=== PATIENT | female | born 1995 | race Caucasian/White ===

== ENCOUNTER 2019-02-22 10:16 | Outpatient (CLI) | payer BC ==
[~2019-02-22] VITALS: Ht 157.5 cm; Wt 90.9 kg
[2019-02-22 10:34] VITALS: BP 113/74
== END 2019-02-22 11:19 | disposition home or self-care (01) ==
LOC: LDOP 10:16
PROVIDERS: ATTEND Obstetrics & Gynecology
DX: O26.893 Other specified pregnancy related conditions, third trimester (principal); M79.89 Other specified soft tissue disorders; Z3A.36 36 weeks gestation of pregnancy; Z88.2 Allergy status to sulfonamides
CPT/HCPCS: 59025; 99201; G0463

== ENCOUNTER 2019-03-07 23:11 | Outpatient (CLI) | payer BC ==
[~2019-03-07] VITALS: Ht 160 cm; Wt 88.0 kg
[2019-03-07 23:45] VITALS: BP 117/73
== END 2019-03-08 00:59 | disposition home or self-care (01) ==
LOC: LDOP 23:11
PROVIDERS: ATTEND Obstetrics & Gynecology
DX: O26.893 Other specified pregnancy related conditions, third trimester (principal); Z3A.38 38 weeks gestation of pregnancy
CPT/HCPCS: 59025; 99211; G0463

== ENCOUNTER 2019-03-14 11:57 | Inpatient (IN) | payer BC ==
[~2019-03-14] VITALS: Ht 160 cm; Wt 90.0 kg
[2019-03-14] MEDS ORDERED: D5%-LACTATED RINGERS 1,000 ML IV SCH (13:52)
[2019-03-14] MEDS ORDERED: OXYTOCIN 30U/ 0.9% NaCL 500ML 500 ML IV ONE (13:52)
[2019-03-14] MEDS ORDERED: LACTATED RINGERS 1,000 ML IV SCH (13:52)
[2019-03-14] MEDS ORDERED: MISOPROSTOL 25 MCG TABLET VG PRN (14:00)
[2019-03-14] MEDS ORDERED: TERBUTALINE 1 MG/ML, 1ML IVPush PRN (14:00)
[2019-03-14] MEDS ORDERED: FENTANYL PF 100 MCG/2ML IV PRN (14:00)
[2019-03-14] MEDS ORDERED: TERBUTALINE 1 MG/ML, 1ML SQ PRN (14:00)
[2019-03-14] MEDS ORDERED: FENTANYL PF 100 MCG/2ML IVPush PRN (14:00)
[2019-03-14] MEDS ORDERED: CALCIUM CARBONATE 500 MG TAB.CHEW PO PRN (14:00)
[2019-03-14] MEDS ORDERED: MISOPROSTOL 25 MCG TABLET ONE (14:09)
[2019-03-14 14:21] VITALS: BP 119/72
[2019-03-14 14:35] LABS: MICROSCOPIC INDICATED
[2019-03-14 14:37] LABS: CREATININE,URINE RANDOM 92.6 mg/dL
[2019-03-14] MEDS ORDERED: NEWBORN KIT ONE (14:45)
[2019-03-14 14:59] LABS: ALANINE AMINOTRANSFERASE 18 U/L (12-78); ALBUMIN 2.4 g/dL (3.4-5.0); ANION GAP 9 mmol/L (5-15); CALCIUM 8.6 mg/dL (8.5-10.1); CHLORIDE 110 mmol/L (98-107); CREATININE 0.62 mg/dL (0.55-1.02)
[2019-03-14 15:03] LABS: ALKALINE PHOSPHATASE 216 U/L (45-117); BILIRUBIN,TOTAL 0.2 mg/dL (0.2-1.0); TOTAL PROTEIN 6.2 g/dL (6.4-8.2)
[2019-03-14 15:07] LABS: BASOPHILS # (AUTO) 0.04 x10^3/uL (0-0.1); BASOPHILS % (AUTO) 0 % (0-1); EOSINOPHILS # (AUTO) 0.13 x10^3/uL (0-0.4); EOSINOPHILS % (AUTO) 1 % (1-7); LYMPHOCYTES # (AUTO) 2.16 x10^3/uL (1-3.4); LYMPHOCYTES % (AUTO) 17 % (22-44); MD NO; MEAN CORPUSCULAR HGB CONC 33.6 g/dL (32.4-35.8); MEAN CORPUSCULAR VOLUME 86.3 fL (80-100); MEAN PLATELET VOLUME 9.2 fL (7.4-10.4); MONOCYTES # (AUTO) 0.61 x10^3/uL (0.2-0.8); MONOCYTES % (AUTO) 5 % (2-9); NEUTROPHILS # (AUTO) 9.57 x10^3/uL (1.8-6.8); NEUTROPHILS % (AUTO) 77 % (42-75); PLATELET COUNT 282 x10^3/uL (130-400); RED BLOOD COUNT 4.17 x10^6/uL (3.82-5.3); RED CELL DISTRIBUTION WIDTH 12.9 % (9.6-15.2)
[2019-03-14] MEDS ORDERED: FENTANYL/BUPIV./NS/PF 250 ML EPIDCONT SCH (16:11)
[2019-03-14] MEDS ORDERED: EPHEDRINE 50 MG/ML, 1ML IVPush PRN (16:30)
[2019-03-14] MEDS ORDERED: NALOXONE 0.4 MG/ML, 1ML IVPush PRN (16:30)
[2019-03-14] MEDS ORDERED: LACTATED RINGERS 1,000 ML IVBOLUS PRN (16:30)
[2019-03-14] MEDS ORDERED: ONDANSETRON 2MG/ML, 2ML ONE ×2 (18:09→23:31)
[2019-03-14] MEDS: ONDANSETRON 2MG/ML, 2ML IVPush PRN ×2 (18:11→23:33)
[2019-03-14] MEDS: LACTATED RINGERS 1,000 ML IV SCH ×2 (19:38→23:30)
[2019-03-14 19:54] VITALS: BP 126/78
[2019-03-14] MEDS ORDERED: OXYTOCIN 30U/ 0.9% NaCL 500ML 500 ML ONE (20:00)
[2019-03-14] MEDS ORDERED: LIDOCAINE 1%, 20ML ONE (20:00)
[2019-03-14] MEDS ORDERED: FENTANYL PF 500 MCG, BUPIVACAINE/PF 0.5%, 30ML 62.5 ML in SODIUM CHLORIDE 0.9% 177.5 ML EPIDCONT SCH (20:00)
[2019-03-14] MEDS ORDERED: MISOPROSTOL 200 MCG TABLET ONE (20:01)
[2019-03-15] MEDS ORDERED: ZOLPIDEM 5MG TABLET ONE (01:02)
[2019-03-15] MEDS ORDERED: ZOLPIDEM 5MG TABLET PO SCH (21:00)
== END 2019-03-15 01:23 | disposition home or self-care (01) | DRG 833 ==
LOC: LDIP 13:08
PROVIDERS: ADMIT Obstetrics & Gynecology; ATTEND Obstetrics & Gynecology
DX: O13.3 Gestational [pregnancy-induced] hypertension without significant proteinuria, third trimester (principal); Z3A.39 39 weeks gestation of pregnancy; O99.513 Diseases of the respiratory system complicating pregnancy, third trimester; J45.909 Unspecified asthma, uncomplicated; Z88.2 Allergy status to sulfonamides
CPT/HCPCS: 36415; J7121; S0020; 80053; 81001; 82570; 84156; 84550; 85025; 86592; 86850; 86900; 96360; 96361; G0378; J2405; J3010; J7050; J7120

== ENCOUNTER 2019-03-18 12:17 | Inpatient (IN) | payer BC ==
[~2019-03-18] VITALS: Ht 160 cm; Wt 87.7 kg
[2019-03-18] MEDS ORDERED: ONDANSETRON 2MG/ML, 2ML IVPush ONE (14:00)
[2019-03-18] MEDS ORDERED: SODIUM CITRATE/CITRIC ACID 30 ML UDC PO ONE (14:00)
[2019-03-18] MEDS ORDERED: LACTATED RINGERS 1,000 ML IVBOLUS ONE ×2 (14:00→17:00)
[2019-03-18] MEDS ORDERED: METOCLOPRAMIDE 5 MG/ML, 2ML IV ONE (14:00)
[2019-03-18] MEDS ORDERED: CALCIUM CARBONATE 500 MG TAB.CHEW PO PRN (14:00)
[2019-03-18 14:18] LABS: BASOPHILS # (AUTO) 0.04 x10^3/uL (0-0.1); BASOPHILS % (AUTO) 0 % (0-1); EOSINOPHILS # (AUTO) 0.03 x10^3/uL (0-0.4); EOSINOPHILS % (AUTO) 0 % (1-7); LYMPHOCYTES % (AUTO) 19 % (22-44); MD NO; MEAN CORPUSCULAR HEMOGLOBIN 28.3 pg (27.0-34.8); MEAN CORPUSCULAR HGB CONC 33.4 g/dL (32.4-35.8); MEAN CORPUSCULAR VOLUME 84.8 fL (80-100); MEAN PLATELET VOLUME 8.5 fL (7.4-10.4); MONOCYTES # (AUTO) 0.48 x10^3/uL (0.2-0.8); MONOCYTES % (AUTO) 4 % (2-9); NEUTROPHILS # (AUTO) 9.44 x10^3/uL (1.8-6.8); NEUTROPHILS % (AUTO) 77 % (42-75); PLATELET COUNT 309 x10^3/uL (130-400); RED BLOOD COUNT 4.54 x10^6/uL (3.82-5.3); RED CELL DISTRIBUTION WIDTH 13.3 % (9.6-15.2)
[2019-03-18 14:30] LABS: ALANINE AMINOTRANSFERASE 17 U/L (12-78); ALBUMIN 2.6 g/dL (3.4-5.0); ANION GAP 9 mmol/L (5-15); CALCIUM 8.8 mg/dL (8.5-10.1); CHLORIDE 111 mmol/L (98-107)
[2019-03-18 14:33] LABS: ALKALINE PHOSPHATASE 241 U/L (45-117); BILIRUBIN,TOTAL 0.4 mg/dL (0.2-1.0); CREATININE 0.68 mg/dL (0.55-1.02); TOTAL PROTEIN 6.7 g/dL (6.4-8.2)
[2019-03-18] MEDS ORDERED: NEWBORN KIT ONE (15:22)
[2019-03-18] MEDS ORDERED: OXYTOCIN 30U/ 0.9% NaCL 500ML 0 ML ONE (15:22)
[2019-03-18] MEDS ORDERED: SODIUM CITRATE/CITRIC ACID 30 ML UDC ONE (15:23)
[2019-03-18] MEDS ORDERED: METOCLOPRAMIDE 5 MG/ML, 2ML ONE (15:23)
[2019-03-18] MEDS ORDERED: morphine SULFATE/PF 0.5 MG/ML, 10ML ONE (15:57)
[2019-03-18] MEDS ORDERED: EPINEPHRINE 1 MG/ML, 1ML ONE ×2 (16:02)
[2019-03-18] MEDS ORDERED: METHYLERGONOVINE 0.2 MG/ML IM ONE ×2 (16:37→16:54)
[2019-03-18] MEDS ORDERED: WATER-INJECTION,STERILE 10 ML IV ONE (18:01)
[2019-03-18] MEDS ORDERED: OXYTOCIN 10 UNITS/ML, 1ML ONE (18:01)
[2019-03-18] MEDS ORDERED: CEFAZOLIN 1,000 MG ONE (18:01)
[2019-03-18] MEDS ORDERED: ONDANSETRON 2MG/ML, 2ML ONE ×2 (18:01)
[2019-03-18] MEDS ORDERED: EPHEDRINE 50 MG/ML, 1ML ONE (18:01)
[2019-03-18] MEDS ORDERED: PHENYLEPHRINE 10 MG/ML ONE (18:01)
[2019-03-18] MEDS ORDERED: DIPHENHYDRAMINE 50 MG/ML, 1ML ONE (18:02)
[2019-03-18] MEDS: LACTATED RINGERS 1,000 ML IV SCH ×2 (18:03→23:28)
[2019-03-18] MEDS: OXYTOCIN 30U/ 0.9% NaCL 500ML 500 ML IV SCH (18:03)
[2019-03-18] MEDS ORDERED: HYDROmorphone 2 MG/ML, 1ML ONE (18:24)
[2019-03-18] MEDS ORDERED: KETOROLAC 30 MG/1 ML ONE (18:24)
[2019-03-18] MEDS ORDERED: OXYcodone/APAP 5/325MG TABLET PO PRN ×2 (18:30→20:00)
[2019-03-18] MEDS ORDERED: ONDANSETRON 2MG/ML, 2ML IV PRN (18:30)
[2019-03-18] MEDS ORDERED: morphine SULFATE 10 MG/ML, 1ML IVPush PRN (18:30)
[2019-03-18] MEDS: KETOROLAC 30 MG/1 ML IV SCH (18:40)
[2019-03-18] MEDS ORDERED: OXYcodone 5 MG/5 ML ORAL.SOL UDC PO PRN (19:00)
[2019-03-18] MEDS ORDERED: HYDROmorphone 2 MG/ML, 1ML IVPush PRN (19:00)
[2019-03-18] MEDS ORDERED: ONDANSETRON 2MG/ML, 2ML IVPush PRN (20:00)
[2019-03-18] MEDS ORDERED: KETOROLAC 30 MG/1 ML IVPush SCH (20:00)
[2019-03-18] MEDS ORDERED: DIPHENHYDRAMINE 50 MG/ML, 1ML IV PRN (20:00)
[2019-03-18] MEDS ORDERED: METOCLOPRAMIDE 5 MG/ML, 2ML IV PRN (20:00)
[2019-03-18] MEDS ORDERED: HYDROmorphone 1 MG/ML, 1ML INJ IVPush PRN (20:00)
[2019-03-18] MEDS ORDERED: NALOXONE 0.4 MG/ML, 1ML IV PRN (20:00)
[2019-03-18] MEDS ORDERED: OXYcodone 5 MG/5 ML ORAL.SOL UDC ONE (20:14)
[2019-03-18 20:45] VITALS: BP 125/78
[2019-03-18] MEDS ORDERED: DIPH,PERTUSS(ACELL),TET VAC/PF NC IM-VACC ONE (23:40)
[2019-03-19 00:10] VITALS: BP 114/59
[2019-03-19] MEDS: LACTATED RINGERS 1,000 ML IV SCH ×4 (00:49→18:03)
[2019-03-19] MEDS: OXYTOCIN 30U/ 0.9% NaCL 500ML 500 ML IV SCH (00:50)
[2019-03-19] MEDS: KETOROLAC 30 MG/1 ML IV SCH ×4 (02:02→19:58)
[2019-03-19 04:32] VITALS: BP 114/75
[2019-03-19] MEDS: OXYcodone IR 5MG TABLET PO PRN ×5 (05:14→21:04)
[2019-03-19 07:12] LABS: BASOPHILS # (AUTO) 0.02 x10^3/uL (0-0.1); BASOPHILS % (AUTO) 0 % (0-1); EOSINOPHILS # (AUTO) 0.03 x10^3/uL (0-0.4); EOSINOPHILS % (AUTO) 0 % (1-7); LYMPHOCYTES # (AUTO) 2.67 x10^3/uL (1-3.4); LYMPHOCYTES % (AUTO) 25 % (22-44); MD NO; MEAN CORPUSCULAR HEMOGLOBIN 28.4 pg (27.0-34.8); MEAN CORPUSCULAR HGB CONC 33.4 g/dL (32.4-35.8); MEAN CORPUSCULAR VOLUME 85.1 fL (80-100); MEAN PLATELET VOLUME 8.5 fL (7.4-10.4); MONOCYTES # (AUTO) 0.72 x10^3/uL (0.2-0.8); MONOCYTES % (AUTO) 7 % (2-9); NEUTROPHILS # (AUTO) 7.32 x10^3/uL (1.8-6.8); NEUTROPHILS % (AUTO) 68 % (42-75); PLATELET COUNT 226 x10^3/uL (130-400); RED BLOOD COUNT 3.18 x10^6/uL (3.82-5.3); RED CELL DISTRIBUTION WIDTH 13.4 % (9.6-15.2)
[2019-03-19 08:00] VITALS: BP 110/72
[2019-03-19] MEDS: DOCUSATE 100 MG CAPSULE PO PRN ×2 (09:13→19:58)
[2019-03-19] MEDS: PRENATAL VIT/IRON/FA 1 EACH TABLET PO SCH (09:13)
[2019-03-19 13:10] VITALS: BP 101/68
[2019-03-19 17:00] VITALS: BP 105/70
[2019-03-19] MEDS: SIMETHICONE 80 MG CHEW TAB PO PRN (17:20)
[2019-03-19 20:00] VITALS: BP 107/71
[2019-03-20] MEDS: KETOROLAC 30 MG/1 ML IV SCH ×3 (01:52→14:08)
[2019-03-20] MEDS: OXYcodone IR 5MG TABLET PO PRN ×5 (01:52→20:34)
[2019-03-20] MEDS: SIMETHICONE 80 MG CHEW TAB PO PRN ×4 (01:52→20:32)
[2019-03-20] MEDS: LACTATED RINGERS 1,000 ML IV SCH (02:03)
[2019-03-20] MEDS: PRENATAL VIT/IRON/FA 1 EACH TABLET PO SCH (06:58)
[2019-03-20] MEDS: DOCUSATE 100 MG CAPSULE PO PRN ×2 (06:59→20:32)
[2019-03-20 08:00] VITALS: BP 114/78
[2019-03-20 20:30] VITALS: BP 107/70
[2019-03-20] MEDS: IBUPROFEN 600 MG TABLET PO PRN (20:32)
[2019-03-21] MEDS: OXYcodone IR 5MG TABLET PO PRN ×2 (01:20→05:55)
[2019-03-21 07:00] VITALS: BP 116/68
[2019-03-21] MEDS ORDERED: IBUP-1222 PO (08:44)
[2019-03-21] MEDS ORDERED: OXYC-302 PO (08:44)
[2019-03-21] MEDS: SIMETHICONE 80 MG CHEW TAB PO PRN (08:47)
[2019-03-21] MEDS: IBUPROFEN 600 MG TABLET PO PRN (08:47)
[2019-03-21] MEDS: PRENATAL VIT/IRON/FA 1 EACH TABLET PO SCH (12:11)
[2019-03-21] MEDS: DOCUSATE 100 MG CAPSULE PO PRN (12:11)
== END 2019-03-21 16:40 | disposition home or self-care (01) | DRG 787 ==
LOC: LDIP 13:39 → 2NW 20:31
PROVIDERS: ADMIT Obstetrics & Gynecology; ATTEND Obstetrics & Gynecology
PROC: 10D00Z1 Extraction of Products of Conception, Low, Open Approach (ICD-10-PCS; principal; 2019-03-18)
DX: O14.04 Mild to moderate pre-eclampsia, complicating childbirth (principal); O99.354 Diseases of the nervous system complicating childbirth; O99.52 Diseases of the respiratory system complicating childbirth; J45.909 Unspecified asthma, uncomplicated; G43.909 Migraine, unspecified, not intractable, without status migrainosus; Z3A.40 40 weeks gestation of pregnancy; Z37.0 Single live birth; Z88.2 Allergy status to sulfonamides
CPT/HCPCS: 36415; 80053; 84550; 85025; 86592; 86850; 86900; 90715; G0378; J0171; J0690; J1885; J2274; J2405; J1200; J2210; J2370; J2590; J2765; J7120